=== PATIENT | female | born 1970 | race Two or more races ===

== ENCOUNTER 2021-01-23 08:17 | Day surgery (SDC) | payer MEDICAID ==
[2021-01-23] VITALS (9 sets, daily range): BP systolic 119–128; BP diastolic 73–87
[~2021-01-23] VITALS: Ht 157.5 cm; Wt 58.7 kg
[~2021-01-23 08:17] MED LIST: NO HOME MEDS; ceFAZolin 2gm in dextrose, iso 50 ML IV ONE; famotidine 20mg tablet PO ONE; ringers solution, lacted 1,000 ML IV SCH
[2021-01-23 09:20] LABS: CLARITY,URINE CLEAR (Clear); COLOR,URINE STRAW (Yellow); GLUCOSE, URINE NEGATIVE (Neg); KETONES,URINE NEGATIVE (Neg); LEUKOCYTE ESTERASE ,URINE TRACE (Neg); NITRITES, URINE NEGATIVE (Neg); OCCULT BLOOD,URINE NEGATIVE (Neg); PROTEIN,URINE NEGATIVE (Neg); UROBILINOGEN,URINE 0.2 E.U/dL (0.2-1.0)
[2021-01-23 09:21] LABS: UA COLLECTION TYPE NON-SPECIFIED
[2021-01-23 09:26] LABS: BACTERIA,URINE FEW /HPF (Neg); MUCUS STRANDS NONE SEEN /LPF (Neg); RBC,URINE 0-2 /HPF (0-2); SQUAMOUS EPITHELIAL CELL,UR FEW /LPF (FEW); WBC,URINE 0-4 /HPF (0-4)
[2021-01-23 09:38] LABS: BASOPHILS % (AUTO) 0.5 % (0-1); EOSINOPHILS # (AUTO) 0.1 X10'3 (0-0.9); EOSINOPHILS % (AUTO) 1.5 % (0-6); LYMPHOCYTES # (AUTO) 1.9 X10'3 (1.1-4.8); MEAN CORPUSCULAR HEMOGLOBIN 28.7 PG (27.0-31.0); MEAN CORPUSCULAR HGB CONC 33.1 g/dL (33.0-36.5); MEAN CORPUSCULAR VOLUME 86.7 FL (78-98); MEAN PLATELET VOLUME 8.6 FL (7.4-10.4); MONOCYTES # (AUTO) 0.4 X10'3 (0-0.9); MONOCYTES % (AUTO) 6.4 % (2-12); NEUTROPHILS # (AUTO) 3.7 X10'3 (1.8-7.7); NEUTROPHILS % (AUTO) 60.6 % (42-75); PRE OP HEMATOCRIT 42.6 % (35.0-45.0); PRE OP HEMOGLOBIN 14.1 g/dL (12.0-16.0); PRE OP PLATELET COUNT 204 X10'3 (140-440); RED BLOOD COUNT 4.92 X10'6 (4.20-5.60); RED CELL DISTRIBUTION WIDTH 13.2 % (11.5-14.5)
[2021-01-23 10:16] LABS: ALBUMIN 4.2 G/DL (3.4-5.0); ALBUMIN/GLOBULIN RATIO 1.1 (1.1-1.5); ALKALINE PHOSPHATASE 76 IU/L (46-116); BLOOD UREA NITROGEN 12 MG/DL (7-18); BUN/CREATININE RATIO 16.4 (6.6-38.0); CALCIUM 10.4 MG/DL (8.5-10.1); CHLORIDE 103 MMOL/L (99-107); CREATININE 0.73 MG/DL (0.40-0.90); PRE OP ALT 24 U/L (30-65); PRE OP ANION GAP 8 (8-16); PRE OP AST 29 U/L (10-37); PRE OP BILIRUB, TOTAL 0.5 MG/DL (0.0-1.0); PRE OP GLUCOSE 104 MG/DL (70-104); PRE OP SODIUM 139 MMOL/L (135-145); TOTAL CARBON DIOXIDE 28.3 MMOL/L (24-32); eGFR 84 ML/MIN
[2021-01-23 10:17] LABS: PRE OP POTASSIUM 6.3 MMOL/L (3.4-5.1)
[2021-01-23] MEDS ORDERED: fentaNYL/PF 50MCG/1 ML 2ML syringe ONE ×2 (10:28→11:02)
[2021-01-23] MEDS ORDERED: midazolam 1 mg/ML 2ml injection ONE (10:28)
[2021-01-23] MEDS ORDERED: LIDOcaine 2% (20mg/ml) 5ml vial ONE (10:32)
[2021-01-23] MEDS ORDERED: propofol inj 20 ML IV ONE (10:32)
[2021-01-23] MEDS ORDERED: rocuronium 10mg/ml inj IV ONE (10:32)
[2021-01-23] MEDS ORDERED: dexamethasone sod phosphate 4mg/ml inj. ONE (10:32)
[2021-01-23] MEDS ORDERED: sevoflurane 250ml liquid IH ONE (10:35)
[2021-01-23] MEDS ORDERED: ondansetron/PF 4mg/2ml inj ONE (10:35)
[2021-01-23] MEDS ORDERED: neostigmine methylsulfate 1 MG/ML 10ml vial ONE (10:35)
[2021-01-23] MEDS ORDERED: glycopyrrolate 0.2mg/ml inj ONE (10:35)
[2021-01-23 10:37] LABS: ISTAT ANION GAP 6 (8-12); ISTAT BUN 10 mg/dL (6-19); ISTAT CL 102 mmol/L (99-107); ISTAT CREATININE 0.6 mg/dL (0.6-1.1); ISTAT GLUCOSE 94 mg/dL (70-104); ISTAT HGB 13.3 g/dl (12.0-16.0); ISTAT Hct 39 %PCV (35-48); ISTAT IONIZED CALCIUM 1.24 mmol/L (1.03-1.32); ISTAT K 4.5 mmol/L (3.5-5.1); ISTAT NA 136 mmol/L (135-145); ISTAT TOTAL CO2 28 mmol/L (24-32); ISTAT eGFR > 90 ML/MIN; POC BUN/CREATININE RATIO 16.7 (6.6-38.0)
[2021-01-23] MEDS ORDERED: BUPIVAcaine/PF 2.5 mg/ml (0.25%) 30ml vial ONE (11:00)
[2021-01-23] MEDS ORDERED: sugammadex 200mg/2ml injection IV ONE (11:15)
--- NOTE | 2021-01-23 11:23 | NUR ---
Received from OR via [facility] , accompanied by Anesthesiologist GAB and report given by Anesthesiolgist. PATIENT IWTH 20G PIV IN LEFT WRIST. VSS. DENIES PAIN ATT HIS TIME. ELEVATED FOOT OF BED, NO DRAINAGE PRESENT TO RIGHT FOOT AT THIS TIME. Addendum: 01/23/21 at 1133 by Jaswinder Connell RN, RN Amended: Links added.
[2021-01-23] MEDS ORDERED: ondansetron/PF 4mg/2ml inj IV PRN (11:35)
[2021-01-23] MEDS ORDERED: ringers solution, lacted 1,000 ML IV SCH (11:35)
[2021-01-23] MEDS ORDERED: meperidine/PF 25mg/ml syringe IV PRN ×3 (11:35)
[2021-01-23] MEDS ORDERED: morphine 2 MG/ML inj. syringe IV PRN (11:35)
[2021-01-23] MEDS ORDERED: proCHLORperazine 10 MG/2 ml inj IV PRN (11:35)
[2021-01-23] MEDS ORDERED: morphine 4 MG/ML inj SYRINge IV PRN (11:35)
[2021-01-23] MEDS ORDERED: bacitracin 15gm ointment TP ONE (12:08)
--- NOTE | 2021-01-23 12:23 | NUR ---
ALL CRITERIA FOR TRANSFER TO THE FLOOR HAS BEEN ACHIEVED. REPORT GIVEN AND ALL QUESTIONS ANSWERED, VSS. BED LOW 2 RAILS UP, CALL LIGHT PRESENT AND PATIENT HOOKED UP TO ALL LINES AND VSS. PATIENTS RN PRESENT TO ACCEPT CARE. SPOTTED WITH BLOOD AT END OF 5TH TOE. DRESSING SOILED BUT CONTAINED. RN DAUGHTER AWARE AND WILL ELEVATED WHEN SHE GETS HOME Addendum: 01/23/21 at 1248 by Jaswinder Pillai - RICKY GARCÍA Amended: Links added.
== END 2021-01-23 12:23 | disposition home or self-care (01) ==
LOC: PAS 08:17
PROVIDERS: ATTEND Podiatrist Foot & Ankle Surgery
DX: M89.8X7 Other specified disorders of bone, ankle and foot (principal); M77.52 Other enthesopathy of left foot and ankle; I10 Essential (primary) hypertension; Z20.822 Contact with and (suspected) exposure to COVID-19; Z79.899 Other long term (current) drug therapy; Z90.49 Acquired absence of other specified parts of digestive tract; Z98.890 Other specified postprocedural states; Z88.8 Allergy status to other drugs, medicaments and biological substances; Z72.89 Other problems related to lifestyle
CPT/HCPCS: 28124; 36415; 80053; 81001; 85025; 87088; 87426; 93005; A6222; C9399; J1100; J2001; J2250; J2405; J2704; J2710; J3010; J3490; L3260; 80047; A4215; A4618; A6449; A7000; J7120

== ENCOUNTER 2021-05-09 10:31 | Emergency (ER) | payer MEDICAID ==
[~2021-05-09] VITALS: Ht 157.5 cm; Wt 59.1 kg
[~2021-05-09 10:31] MED LIST changes: -ceFAZolin 2gm in dextrose, iso 50 ML IV ONE; -famotidine 20mg tablet PO ONE; -ringers solution, lacted 1,000 ML IV SCH
--- NOTE | 2021-05-09 11:00 | NUR ---
Ama FERREIRA at bedside.
[2021-05-09 11:37] LABS: BASOPHILS % (AUTO) 0.4 % (0-1); EOSINOPHILS % (AUTO) 0.6 % (0-6); HEMATOCRIT 39.2 % (35.0-45.0); HEMOGLOBIN 13.1 g/dl (12.0-16.0); LYMPHOCYTES # (AUTO) 1.3 X10'3 (1.1-4.8); LYMPHOCYTES % (AUTO) 23.8 % (21-51); MEAN CORPUSCULAR HEMOGLOBIN 28.8 PG (27.0-31.0); MEAN CORPUSCULAR HGB CONC 33.5 g/dL (33.0-36.5); MEAN CORPUSCULAR VOLUME 86.1 FL (78-98); MEAN PLATELET VOLUME 8.7 FL (7.4-10.4); MONOCYTES # (AUTO) 0.6 X10'3 (0-0.9); MONOCYTES % (AUTO) 9.9 % (2-12); NEUTROPHILS # (AUTO) 3.6 X10'3 (1.8-7.7); NEUTROPHILS % (AUTO) 65.3 % (42-75); PLATELET COUNT 190 X10'3 (140-440); RED BLOOD COUNT 4.55 X10'6 (4.20-5.60); RED CELL DISTRIBUTION WIDTH 13.7 % (11.5-14.5); WHITE BLOOD COUNT 5.6 X10'3 (4.5-11.0)
[2021-05-09 11:40] LABS: ALANINE AMINOTRANSFERASE 21 U/L (12-78); ALBUMIN 3.6 G/DL (3.4-5.0); ALBUMIN/GLOBULIN RATIO 1.1 (1.1-1.5); ALKALINE PHOSPHATASE 64 IU/L (46-116); ANION GAP 8 (8-16); ASPARTATE AMINO TRANSFERASE 16 U/L (10-37); BILIRUBIN,TOTAL 0.5 MG/DL (0.1-1.0); BLOOD UREA NITROGEN 7 MG/DL (7-18); BUN/CREATININE RATIO 9.2 (6.6-38.0); CHLORIDE 105 MMOL/L (99-107); CREATININE 0.76 MG/DL (0.40-0.90); GLUCOSE 95 MG/DL (70-104); SODIUM 138 MMOL/L (135-145); TOTAL PROTEIN 6.9 G/DL (6.4-8.2); eGFR 80 ML/MIN
[2021-05-09 12:52] LABS: D-DIMER 0.53 MG/L FEU (0-0.50)
[2021-05-09] MEDS ORDERED: iohexol 350MG/ML 100ml bottle IV ONE (14:04)
[2021-05-09] MEDS ORDERED: acetaminophen 325mg tablet PO ONE (15:10)
[2021-05-09] MEDS ORDERED: ketorolac trometh. 30mg/ml inj. IM ONE (15:10)
[2021-05-09 15:51] VITALS: BP 147/86
== END 2021-05-09 15:53 | disposition home or self-care (01) ==
LOC: ER 10:31
DX: R91.1 Solitary pulmonary nodule (principal); R07.89 Other chest pain; R11.10 Vomiting, unspecified; Z88.8 Allergy status to other drugs, medicaments and biological substances; Z79.899 Other long term (current) drug therapy
CPT/HCPCS: 36415; 71045; 71275; 80053; 84484; 85025; 85379; 93005; 96372; 99285; J1885; Q9967

== ENCOUNTER 2021-07-07 13:48 | Outpatient (CLI) | payer MEDICAID | END 2021-07-07 23:59 | disposition home or self-care (01) | LOC: VAS 13:48 | PROVIDERS: ATTEND Family Medicine | DX: M25.561 Pain in right knee (principal) | CPT/HCPCS: 93971 ==

== ENCOUNTER 2024-08-19 18:26 | Inpatient (IN) | payer MEDICAID ==
[~2024-08-19] VITALS: Ht 157.5 cm; Wt 58.2 kg
[2024-08-19 19:29] LABS: BASOPHILS # (AUTO) 0.1 X10'3 (0-0.2); BASOPHILS % (AUTO) 0.8 % (0-1); EOSINOPHILS % (AUTO) 0.6 % (0-6); HEMATOCRIT 40.4 % (35.0-45.0); HEMOGLOBIN 13.7 g/dl (12.0-16.0); LYMPHOCYTES # (AUTO) 2.8 X10'3 (1.1-4.8); MEAN CORPUSCULAR VOLUME 82.4 FL (78-98); MEAN PLATELET VOLUME 8.6 FL (7.4-10.4); MONOCYTES # (AUTO) 0.4 X10'3 (0-0.9); MONOCYTES % (AUTO) 5.4 % (2-12); NEUTROPHILS # (AUTO) 4.1 X10'3 (1.8-7.7); NEUTROPHILS % (AUTO) 55.2 % (42-75); PLATELET COUNT 244 X10'3 (140-440); RED CELL DISTRIBUTION WIDTH 13.5 % (11.5-14.5); WHITE BLOOD COUNT 7.4 X10'3 (4.5-11.0)
[2024-08-19 19:38] LABS: APTT 24 SECONDS (22-32); PROTHROMBIN TIME 10.3 SECONDS (9.0-12.0)
[2024-08-19 19:43] LABS: ALANINE AMINOTRANSFERASE 15 U/L (12-78); ALBUMIN 4.4 G/DL (3.4-5.0); ALBUMIN/GLOBULIN RATIO 1.2 (1.1-1.5); ALKALINE PHOSPHATASE 74 IU/L (46-116); ANION GAP 9 (8-16); ASPARTATE AMINO TRANSFERASE 17 U/L (10-37); BILIRUBIN,TOTAL 0.6 MG/DL (0.1-1.0); BLOOD UREA NITROGEN 10 MG/DL (7-18); BUN/CREATININE RATIO 13.3 (10.0-20.0); CALCIUM 10.3 MG/DL (8.5-10.1); CHLORIDE 101 MMOL/L (99-107); CREATININE 0.75 MG/DL (0.40-0.90); GLUCOSE 84 MG/DL (70-104); POTASSIUM 3.6 MMOL/L (3.5-5.1); SODIUM 134 MMOL/L (135-145); TOTAL CARBON DIOXIDE 23.8 MMOL/L (24-32); eCRCL 66 ML/MIN; eGFR 80 ML/MIN
[2024-08-19 19:53] LABS: FREE T4 (FREE THYROXINE) 0.89 NG/DL (0.73-1.40); THYROID STIMULATING HORMONE 0.97 ulU/ml (0.34-4.50)
[2024-08-19 20:10] LABS: BILIRUBIN,URINE NEGATIVE (Neg); CLARITY,URINE CLEAR (Clear); COLOR,URINE STRAW (Yellow); GLUCOSE, URINE NEGATIVE (Neg); KETONES,URINE TRACE mg/dl (Neg); LEUKOCYTE ESTERASE ,URINE NEGATIVE (Neg); NITRITES, URINE NEGATIVE (Neg); OCCULT BLOOD,URINE NEGATIVE (Neg); PROTEIN,URINE NEGATIVE (Neg); UROBILINOGEN,URINE 0.2 E.U/dL (0.2-1.0)
[2024-08-19 20:14] LABS: UA COLLECTION TYPE CLN CATCH MIDSTREAM
[2024-08-19 20:22] LABS: URINE AMPHETAMINE SCREEN NEGATIVE (Neg); URINE BARBITUATE SCREEN NEGATIVE (Neg); URINE BENZODIAZEPINES SCREEN NEGATIVE (Neg); URINE CANNABINOID SCREEN NEGATIVE (Neg); URINE COCAINE SCREEN NEGATIVE (Neg); URINE METHADONE SCREEN NEGATIVE (Neg); URINE OPIATE SCREEN NEGATIVE (Neg); URINE PHENCYCLIDINE SCREEN NEGATIVE (Neg)
[2024-08-19] MEDS ORDERED: iohexol 350MG/ML 100ml bottle IV ONE (21:18)
[2024-08-19] MEDS: acetaminophen 325mg tablet PO ONE (22:11)
[2024-08-19] MEDS: normal saline 500ml IV soln 500 ML IV ONE (22:21)
[2024-08-19] MEDS ORDERED: CIME200T12 PO (22:43)
[2024-08-19] MEDS ORDERED: MELA1TAB28 PO (22:43)
[2024-08-19] MEDS ORDERED: potassium Cl 40MEQ/1/2NS 520ml 520 ML IV PRN (22:45)
[2024-08-19] MEDS ORDERED: potassium Cl 20 mEq SR tablet PO PRN ×2 (22:45)
[2024-08-19] MEDS ORDERED: ondansetron/PF 4mg/2ml inj IV PRN (22:45)
[2024-08-19] MEDS ORDERED: magnesium Cl slow-release 64mg tablet PO PRN (22:45)
[2024-08-19] MEDS ORDERED: magnesium sulf-water 2g/50mL 50 ML IV PRN (22:45)
[2024-08-19] MEDS ORDERED: magnesium hydroxide 30ml (MOM) UD suspension PO PRN (22:45)
[2024-08-19] MEDS ORDERED: mag hydrox/Alum hydrox/simeth 30ml oral suspension PO PRN (22:45)
[2024-08-19] MEDS ORDERED: magnesium sulf-water 4G/100mL 100 ML IV PRN (22:45)
[2024-08-19] MEDS ORDERED: Melatonin 3mg tablet PO SCH (22:50)
[2024-08-19 23:19] LABS: MAGNESIUM 1.9 MG/DL (1.5-2.4); PHOSPHORUS 4.1 MG/DL (2.3-4.5)
[2024-08-19 23:26] LABS: HEMOGLOBIN A1C 5.4 % (4.5-6.2)
[2024-08-19] MEDS: Melatonin 3mg tablet PO SCH (23:26)
[2024-08-20] MEDS: acetaminophen 325mg tablet PO PRN (07:27)
[2024-08-20] MEDS: heparin, porcine 5000 units/ml vial SQ SCH (07:27)
[2024-08-20 07:52] LABS: BASOPHILS % (AUTO) 0.6 % (0-1); EOSINOPHILS # (AUTO) 0.1 X10'3 (0-0.9); HEMATOCRIT 39.5 % (35.0-45.0); HEMOGLOBIN 13.4 g/dl (12.0-16.0); LYMPHOCYTES # (AUTO) 2.4 X10'3 (1.1-4.8); LYMPHOCYTES % (AUTO) 46.7 % (21-51); MEAN CORPUSCULAR HEMOGLOBIN 28.5 PG (27.0-31.0); MEAN CORPUSCULAR VOLUME 83.8 FL (78-98); MEAN PLATELET VOLUME 8.2 FL (7.4-10.4); MONOCYTES # (AUTO) 0.3 X10'3 (0-0.9); MONOCYTES % (AUTO) 6.4 % (2-12); NEUTROPHILS # (AUTO) 2.3 X10'3 (1.8-7.7); NEUTROPHILS % (AUTO) 44.3 % (42-75); PLATELET COUNT 227 X10'3 (140-440); RED BLOOD COUNT 4.71 X10'6 (4.20-5.60); RED CELL DISTRIBUTION WIDTH 13.6 % (11.5-14.5); WHITE BLOOD COUNT 5.2 X10'3 (4.5-11.0)
[2024-08-20] MEDS: docusate sod 100mg capsule PO SCH (08:00)
[2024-08-20] MEDS: K and/or MAG REPLACEMENT MC SCH (08:00)
[2024-08-20 08:27] LABS: ALANINE AMINOTRANSFERASE 14 U/L (12-78); ALBUMIN 3.6 G/DL (3.4-5.0); ALBUMIN/GLOBULIN RATIO 1.1 (1.1-1.5); ALKALINE PHOSPHATASE 62 IU/L (46-116); ANION GAP 7 (8-16); ASPARTATE AMINO TRANSFERASE 10 U/L (10-37); BILIRUBIN,TOTAL 0.6 MG/DL (0.1-1.0); BLOOD UREA NITROGEN 8 MG/DL (7-18); BUN/CREATININE RATIO 9.8 (10.0-20.0); CALCIUM 9.4 MG/DL (8.5-10.1); CHLORIDE 104 MMOL/L (99-107); CHOL/HDL RATIO 3.3 (0.00-4.99); CHOLESTEROL 206 MG/DL (0-200); CREATININE 0.82 MG/DL (0.40-0.90); GLUCOSE 87 MG/DL (70-104); HDL CHOLESTEROL 63 MG/DL (35-60); LDL CHOLESTEROL 120 MG/DL (50-100); POTASSIUM 3.9 MMOL/L (3.5-5.1); SODIUM 138 MMOL/L (135-145); TOTAL CARBON DIOXIDE 26.8 MMOL/L (24-32); TRIGLYCERIDES 50 MG/DL (20-135); eCRCL 61 ML/MIN; eGFR 72 ML/MIN
[2024-08-20 08:37] VITALS: BP 140/88; PULSE 79; RESP 14; TEMP 97.8; O2SAT 100
[2024-08-20 08:51] VITALS: RESP 14; O2SAT 100
[2024-08-20 09:18] VITALS: BP 140/88; PULSE 79; RESP 14; TEMP 97.8; O2SAT 100
[2024-08-20] MEDS: morphine 2 MG/ML inj. syringe IV PRN (09:26)
[2024-08-20] MEDS ORDERED: CHOL20002 PO (09:36)
[2024-08-20] MEDS ORDERED: ASCO100031 PO (09:36)
[2024-08-20] MEDS ORDERED: CYCL5TAB PO (09:40)
[2024-08-20] MEDS ORDERED: IBUP-1986 PO (09:40)
[2024-08-20] MEDS ORDERED: ASPI81TA52 PO (09:47)
[2024-08-20] MEDS ORDERED: MECO10005 PO (09:52)
[2024-08-20] MEDS ORDERED: MAGN400C PO (09:54)
[2024-08-20 10:26] VITALS: RESP 13
[2024-08-20] MEDS ORDERED: GADOTERATE MEGLUMINE 7.5 MMOL/15 ML VIAL IV ONE (13:20)
[2024-08-20] MEDS ORDERED: MIRT-142 PO (13:52)
[2024-08-20] MEDS ORDERED: Melatonin 3mg tablet PO SCH (21:00)
== END 2024-08-20 14:47 | disposition home or self-care (01) | DRG 52 ==
LOC: ER 18:26 → ED HOLD 22:49 → ORTHO 4S 08-20 08:37
PROVIDERS: ADMIT Surgery; ATTEND Internal Medicine
PROC: B3251ZZ Computerized Tomography (CT Scan) of Bilateral Common Carotid Arteries using Low Osmolar Contrast (ICD-10-PCS; 2024-08-19)
PROC: B32G1ZZ Computerized Tomography (CT Scan) of Bilateral Vertebral Arteries using Low Osmolar Contrast (ICD-10-PCS; 2024-08-19)
PROC: B32R1ZZ Computerized Tomography (CT Scan) of Intracranial Arteries using Low Osmolar Contrast (ICD-10-PCS; 2024-08-19)
PROC: B3281ZZ Computerized Tomography (CT Scan) of Bilateral Internal Carotid Arteries using Low Osmolar Contrast (ICD-10-PCS; 2024-08-19)
PROC: 4A00X4Z Measurement of Central Nervous Electrical Activity, External Approach (ICD-10-PCS; principal; 2024-08-20)
DX: G45.4 Transient global amnesia (principal); F06.8 Other specified mental disorders due to known physiological condition; G47.00 Insomnia, unspecified; K21.9 Gastro-esophageal reflux disease without esophagitis; I10 Essential (primary) hypertension; Z90.49 Acquired absence of other specified parts of digestive tract; Z88.8 Allergy status to other drugs, medicaments and biological substances; Z91.013 Allergy to seafood
CPT/HCPCS: 36415; 70450; 70496; 70498; 70553; 71045; 80053; 80061; 80305; 81003; 82140; 83036; 83605; 83735; 84100; 84145; 84439; 84443; 84484; 85025; 85610; 85730; 87040; 93005; 95816; 99285; A9575; C1758; G0378; J1644; J2270; J7040; Q9967